=== PATIENT | male | born 1980 | race Caucasian/White ===

== ENCOUNTER 2016-09-20 20:00 | Emergency (ER) | payer OTHER ==
[~2016-09-20] VITALS: Ht 165.1 cm; Wt 81.6 kg
[2016-09-20 23:45] VITALS: BP 139/94
[2016-09-21] MEDS ORDERED: KETOROLAC TROMETH 60MG/2ML VIAL IM ONE (00:30)
== END 2016-09-21 01:40 | disposition home or self-care (01) ==
LOC: ER 20:11
DX: S42.92XA Fracture of left shoulder girdle, part unspecified, initial encounter for closed fracture (principal); M25.522 Pain in left elbow; X50.9XXA Other and unspecified overexertion or strenuous movements or postures, initial encounter; Y93.89 Activity, other specified; Y99.8 Other external cause status; Y92.89 Other specified places as the place of occurrence of the external cause
CPT/HCPCS: 73200; 96372; 99284; J1885